=== PATIENT | male | born 1945 | race Caucasian/White ===

== ENCOUNTER 2019-05-27 08:50 | Outpatient (CLI) | payer MEDICARE ==
--- NOTE | 2019-05-27 14:12 | NM ---
THREE PHASE BONE SCAN TO BOTH SHOULDERS: 05/27/19 INDICATIONS: Mechanical loosening of prosthetic joint left. Left shoulder pain. TECHNIQUE: 30 millicuries of technetium labeled MDP administered. AP images of upper chest including both should ers were obtained. Blood flow, blood pool, and delayed skeletal images are obtained. Delayed skeletal images of the whole body were obtained. FINDINGS: No increased blood flow to either shoulder seen on blood flow images. On blood pool images, slight in creased activity seen in the soft tissues of both shoulder prostheses. On delayed skeletal images, there is increased activity at both shoulders, more pronounced on the rig ht. IMPRESSION: 1. No increased blood flow to either shoulder. 2. Delayed images show increased activity at both shoulders, more pronounced on the right. This could represent loosening or degenerative change. POS: ALEJANDRA
== END 2019-05-27 08:51 | disposition home or self-care (01) ==
LOC: NM 08:50
PROVIDERS: ATTEND Orthopaedic Surgery
DX: T84.038A Mechanical loosening of other internal prosthetic joint, initial encounter (principal)
CPT/HCPCS: 78315; A9503